=== PATIENT | male | born 1990 | race African-American/Black ===

== ENCOUNTER 2019-12-16 13:23 | Emergency (ER) | payer SELFPAY ==
[~2019-12-16] VITALS: Ht 182.9 cm; Wt 78.5 kg
[2019-12-16 13:29] VITALS: BP 111/60
--- NOTE | 2019-12-16 13:32 | NUR ---
PT SEEN AND EXAMINED BY .
--- NOTE | 2019-12-16 13:45 | NUR ---
SHOOTER'S HELPER AT BEDSIDE FOR XRAY.
--- NOTE | 2019-12-16 14:35 | NUR ---
CARPENTER ASSISTANT AT BEDSIDE FOR ULNAR GUTTER SPLINT.
--- NOTE | 2019-12-16 14:57 | NUR ---
Patient discharged to home in stable condition. Written and verbal after care instructions given. Patient verbalizes understanding of instruction.
== END 2019-12-16 14:57 | disposition home or self-care (01) ==
LOC: ER 13:25
DX: S62.336A Displaced fracture of neck of fifth metacarpal bone, right hand, initial encounter for closed fracture (principal); W22.8XXA Striking against or struck by other objects, initial encounter; Y93.89 Activity, other specified; Y92.89 Other specified places as the place of occurrence of the external cause; Y99.8 Other external cause status
CPT/HCPCS: 73130-TC